=== PATIENT | male | born 1965 | race Caucasian/White ===

== ENCOUNTER 2018-03-08 10:17 | Outpatient (CLI) | payer BC ==
[2018-03-08 11:41] LABS: eGFR (Non-African) > 60
== END 2018-03-08 10:19 ==
LOC: LAB 10:17
PROVIDERS: ATTEND Physician Assistant
DX: I10 Essential (primary) hypertension (principal); Z13.6 Encounter for screening for cardiovascular disorders
CPT/HCPCS: 36415; 80053; 80061

== ENCOUNTER 2019-05-31 08:13 | Outpatient (CLI) | payer BC ==
[2019-05-31 09:20] LABS: HDL 31 mg/dL (>40); eGFR (Non-African) > 60
== END 2019-05-31 08:18 ==
LOC: LAB 08:13
PROVIDERS: ATTEND Family Medicine
DX: I10 Essential (primary) hypertension (principal); N52.9 Male erectile dysfunction, unspecified
CPT/HCPCS: 36415; 80053; 80061; 84403